=== PATIENT | female | born 1950 | race Caucasian/White ===

== ENCOUNTER 2022-12-26 18:07 | Emergency (ER) | payer OTHER, SELFPAY ==
[2022-12-26] VITALS (34 sets, daily range): BP systolic 72–149; BP diastolic 36–119; PULSE 72–101; RESP 12–34; TEMP 36.2–36.6; O2SAT 79–96
--- NOTE | ~2022-12-26 | CT_ITS ---
EXAMINATION: CT chest abdomen pelvis wo con DATE: 12/26/2022 21:07 INDICATION: Recent sepsis, now altered mental status. TECHNIQUE: Computed tomography (CT) of the chest, abdomen, and pelvis was performed without intraveno us contrast. Automated exposure control and iterative reconstruction technique were employed. The dos e-length product was 1294.54 mGy-cm. COMPARISON: None FINDINGS: CHEST CT: Mild emphysema. There is consolidation in the posterior medial left lower lobe with some correspondin g volume loss and favor atelectasis although difficult to exclude superimposed pneumonia. More linear bands of discoid atelectasis/scarring scattered throughout both lungs. There is a suture line in the right middle lobe suggesting prior partial pulmonary wedge resection. No pleural effusion. Small antonette unt of mucus in the trachea and left mainstem bronchus. Heart size is normal. Decreased attenuation t he blood pool relative to the myocardium consistent with anemia. No pericardial effusion. Atheroscler otic coronary artery calcifications and aortic valve calcific lesion. Thoracic aorta is normal in jason iber. Enlargement of the central pulmonary arteries consistent with pulmonary arterial hypertension. Several mildly prominent but still normal-sized mediastinal lymph nodes which are likely reactive. Ch ronic T7 and T12 compression fractures with change of prior vertebral plasties. There is increased sc lerosis associated with likely recent compression fracture T2 and burst fractures at T9 and T11. Ther e is a few millimeter retropulsion at both T9 and T11 resulting in mild central canal stenosis. Old h ealed fracture at the inferior sternum. ABDOMEN/PELVIS CT: There is marked dilation of the gallbladder which measures up to 6.0 cm maximal diameter. There is ho wever no evident gallbladder wall thickening or pericholecystic inflammatory stranding to more specif ically suggest acute cholecystitis. Liver, spleen, pancreas and bilateral adrenal glands are normal. Bilateral nephrolithiasis with approximately 5 stones in both kidneys measuring up to 3 mm in the rig ht kidney and 4 mm in the left kidney. There is mild right hydronephrosis with a right internal urete ral stent with loops formed in an upper pole calyx of the right kidney and in the bladder. There is a 2 mm stone in 3 mm stone alongside the stent in the proximal most right ureter. Portion of the bladd er and central deep pelvis are obscured by dense metallic streak artifact related to partially visual ized bilateral total hip arthroplasties. There is also a Roth catheter in the bladder. Moderate to l arge amount of colonic stool. No dilated bowel to suggest obstruction. The appendix is not visualized . No pericecal inflammatory change to suggest acute appendicitis. No free intraperitoneal gas or flui d. No pathologically enlarged abdominal or pelvic lymphadenopathy. 4 nonrib-bearing lumbar vertebra w ith additional more chronic appearing compression fractures at L1 and L2 and more recent-appearing co mpression fracture along the left superior endplate of L3. IMPRESSION: 1. Mild emphysema with scattered bilateral discoid atelectasis/scarring. 2. Consolidation in the posterior medial left lower lobe with associated volume loss and favor atelec tasis although difficult to exclude superimposed pneumonia. 3. Prominent dilation of the gallbladder which measures up to 6 cm but without evident wall thickenin g or pericholecystic inflammatory stranding to more specifically suggest acute cholecystitis. Correla te for Qiu sign and if clinically indicated this could be further evaluated with other ultrasound or HIDA scan. 4. Bilateral nephrolithiasis with mild right hydronephrosis and a couple 2-3 mm proximal right ureter al stones along side a right internal ureteral stent which is in expected position. 5. Multiple chronic and more recent-appearing compression and burst fract
--- NOTE | ~2022-12-26 | CT_ITS ---
EXAMINATION: CT brain wo con DATE: 12/26/2022 21:05 INDICATION: Confusion TECHNIQUE: Computed tomography (CT) of the head was performed without intravenous contrast. Sagittal and coronal reconstructions were performed. The mA was adjusted according to patient size. Iterative reconstruction technique was employed. The dose-length product was 605.33 mGy-cm. COMPARISON: None FINDINGS: Small region of encephalomalacia at the right parietal lobe along the posterior sylvian fissure consi stent with chronic infarct. Small lacunar infarct versus more likely, prevascular space at the inferi or left basal ganglia. No acute intracranial hemorrhage, acute infarction or abnormal extra axial flu id collection. There is mild scattered white matter hypoattenuation consistent with chronic small ves errol ischemic disease. Ventricles are normal and symmetric. No mass/mass effect. Changes of right int raocular lens replacement. Mild mucosal thickening the bilateral ethmoid sinuses. Small right mastoid effusion. IMPRESSION: 1. Small region of encephalomalacia consistent with chronic infarct in the left parietal lobe along t he sylvian fissure. No evident acute intracranial process. 2. Mild scattered white matter hypoattenuation consistent with chronic small vessel ischemic disease. Reviewed, dictated and finalized at location A. GLUER IMPRESSION: 1. Small region of encephalomalacia consistent with chronic infarct in the left parietal lobe along the sylvian fissure. No evident acute intracranial process . 2. Mild scattered white matter hypoattenuation consistent with chronic small ve ssel ischemic disease.
--- NOTE | 2022-12-26 18:33 | ECG_ITS ---
Measurements Intervals [place] Rate: 93 P: 30 [place]: 153 QRS: 23 QRSD: 97 T: -75 QT: 391 QTc: 486 Interpretive Statements SINUS RHYTHM NONSPECIFIC ST ABNORMALITY BASELINE ARTIFACT BORDERLINE ECG NO PREVIOUS ECG AVAILABLE FOR COMPARISON Electronically Signed On 12-28-2022 14:31:09 MANAGER ANIMATION by Manolo Chavez M.D.
--- NOTE | 2022-12-26 18:36 | ED.GENADULT ---
HPI - General Adult General Chief complaint: Shortness of Breath/Dyspnea Stated complaint: weakness Time Seen by Provider: 12/26/22 18:17 History of Present Illness HPI narrative: The patient is a 72-year-old woman with comorbidities of chronic anticoagulation, (due to atrial fibrillation history), on rivaroxaban 20 mg daily. Also with COPD, supposed to be on 2 L at all times but she does not like wearing her oxygen so she was not wearing it this evening. Recently was admitted from December 13, 2022 until December 22, 2022, discharged 4 days ago from [facility] in [facility] due to sepsis and kidney and ureteral stones. She underwent a ureteral stent placement bilaterally as well as a Roth catheter. She was discharged home after consultation with ID, on Bactrim until 12/28/2022 followed by Keflex 500 mg daily starting on 12/29/2022 for prophylaxis and suppression of a UTI. She is to follow-up with urology. She presented today with acute respiratory distress, oxygen saturations 54% on room air. On re-evaluation, 78% on room air, oxygen applied. DuoNeb given. Transported here. Saturations here are 91% on 3 L. One DuoNeb given during transport. She is confused. Answers in one-word sentences. Audible wheezing noted. Abdomen distended. Does complain of mild abdominal discomfort. Also with shortness of breath. No additional history is available or obtainable given the patient's confusion, lack of family members, or attendants with the patient. Related Data Home Medications Medication Instructions Recorded Confirmed albuterol sulfate 2.5 mg/3 mL 2.5 mg continuous nebulization PRN 12/26/22 12/26/22 (0.083 %) solution for nebulization PRN Shortness Of Breath Or Wheezing albuterol sulfate 90 mcg/actuation 2 puff inhalation Q4-6H PRN 12/26/22 12/26/22 aerosol inhaler Shortness Of Breath Or Wheezing alprazolam 0.25 mg tablet 0.25 mg PO PRN PRN Anxiety 12/26/22 12/26/22 benzonatate 100 mg capsule 100 mg PO PRN PRN Cough 12/26/22 12/26/22 budesonide 0.5 mg/2 mL suspension 1 mg inhalation HS 12/26/22 12/26/22 for nebulization cephalexin 500 mg capsule 500 mg PO DAILY 12/26/22 12/26/22 cyclobenzaprine 10 mg tablet 10 mg PO DAILY 12/26/22 12/26/22 fluticasone propionate 50 2 spray intranasal DAILY 12/26/22 12/26/22 mcg/actuation nasal spray,suspension formoterol fumarate 20 mcg/2 mL 20 mcg inhalation DAILY 12/26/22 12/26/22 solution for nebulization furosemide 20 mg tablet 20 mg PO DAILY 12/26/22 12/26/22 gabapentin 300 mg capsule 300 mg PO TID 12/26/22 12/26/22 ipratropium 0.5 mg-albuterol 3 mg 3 ml inhalation Q4-6H PRN 12/26/22 12/26/22 (2.5 mg base)/3 mL nebulization Shortness Of Breath Or Wheezing soln loratadine 10 mg capsule 10 mg PO DAILY 12/26/22 12/26/22 losartan 50 mg tablet 50 mg PO DAILY 12/26/22 12/26/22 metoprolol succinate 50 mg 50 mg PO DAILY 12/26/22 12/26/22 tablet,extended release 24 hr polyethylene glycol 3350 17 gram 17 g PO DAILY 12/26/22 12/26/22 oral powder packet rivaroxaban 20 mg tablet (Xarelto) 20 mg PO DAILY 12/26/22 12/26/22 sertraline 25 mg tablet 25 mg PO DAILY 12/26/22 12/26/22 Allergies Allergy/AdvReac Type Severity Reaction Status Date / Time No Known Allergies Allergy Verified 12/26/22 18:24 Review of Systems Review of Systems: ROS unobtainable: Yes unobtainable due to medical condition and unobtainable due to mental status Exam Narrative: Answers in one-word sentences, confused, mumbles Const: General: healthy appearing, confusion and ill appearing Nutritional Appearance: well nourished and obese Limitations: altered mental status HENMT: Head: normal to inspection, no contusions and no hematomas Ears: external ears normal Face/Nose/Sinus: Normal external nose present Face and sinus: normal facial exam Mouth: Yes Normal oral and palatal mucosa present and Yes dry mucous membranes Throat: posterior oropharynx normal and uvula midline E
[2022-12-26] MEDS: IPRATROPIUM 0.5 MG/ALBUTEROL SULFATE 2.5 MG AMPUL.NEB 3 ML INHALATION (18:50)
[2022-12-26 19:02] LABS: Appearance Urine Clear (Clear); Bilirubin Urine Negative (Negative); Blood Urine 3+ (Negative); Glucose Urine UA Negative (Negative); Ketones Urine Negative (Negative); Leukocyte Esterase Ur 3+ LEU/UL (Negative); Nitrate Urine Negative (Negative); Protein Urine 1+ (Negative); Urobilinogen Urine 0.2 mg/dL (0.2-1.0)
[2022-12-26] MEDS: MAGNESIUM SULF 2 GM/WATER 50ML 2 GM/50 ML BAG IVPB (19:17)
[2022-12-26] MEDS: methylPREDNISolone SOD SUCC 125 MG VIAL IV PUSH (19:17)
--- NOTE | 2022-12-26 19:20 | PC.NURSE ---
Report received, upon assessment of pt and entering room, pt noted sluggish and obtunded, she will awake to verbal command and alert to self only. She will answer short yes and no questions and then fall asleep again. Noted [place] cath in place that she was sent home from [facility] and it is draining dark maryam colored urine. IVF per EMS completed and pt given IVP Solumedrol and Magnesium started as per ERP order. Pt has depend in place. Pts. family member in room at bedside and able to answer some questions. Poor historian and hx on pt. received, unable to answer complete questions on pt. hx. Explained to family member Neda about current POC.
[2022-12-26 19:35] LABS: Basophils Absolute Auto 0.04 K/mm3 (0.00-0.10); Basophils Percent Auto 0.4 % (0.0-1.0); Hematocrit 32.6 % (35.0-42.0); Hemoglobin 9.3 g/dL (11.7-13.8); Lymphocytes Percent Auto 26.2 % (18.0-42.0); Mean Corpuscular HGB Conc 28.5 g/dL (32.0-36.0); Mean Corpuscular Hemoglobin 28.9 pg (27.0-31.0); Mean Corpuscular Volume 101.2 fL (78.0-102.0); Mean Platelet Volume 10.9 fl (9.2-11.8); Monocytes Absolute Auto 0.83 K/mm3 (0.10-0.90); Monocytes Percent Auto 8.4 % (2.0-11.0); Neutrophils Absolute Auto 6.2 K/mm3 (1.7-7.2); Nucleated Red Blood Cells Absolute Auto 0.04 K/mm3 (0.00-0.00); Nucleated Red Blood Cells Perc 0.4 % (0-0.0); Platelet Count Result 424 K/mm3 (150-420); Red Blood Count 3.22 M/mm3 (4.20-5.40); Red Cell Distribution Width 17.6 % (11.6-14.4); White Blood Count 9.9 K/mm3 (4.8-10.8)
[2022-12-26 19:55] LABS: Add Urine Microscopic? YES; Bacteria Urine 1+ /hpf; Budding Yeast Urine Present /hpf; Color Urine Light Green (Yellow); RBC Urine >75 /hpf (0-2); Squamous Epithelial Cell Urine Few /hpf (Few); WBC Urine >75 /hpf (0-3)
[2022-12-26 19:59] LABS: Lactic Acid Reflex 0.7 mmol/L (0.4-2.0)
[2022-12-26 20:04] LABS: Strep Group A RT-PCR NOT DETECTED (Negative)
[2022-12-26 20:07] LABS: Amphetamine Screen Urine Negative (Negative); Barbiturate Screen Urine Negative (Negative); Benzodiazepines Screen Urine Negative (Negative); Cannabinoid Screen Urine Negative (Negative); Cocaine Screen Urine Negative (Negative); Methadone Screen Urine Negative (Negative); Opiate Screen Urine Positive (Negative); Phencyclidine Screen Urine Negative (Negative)
[2022-12-26 20:07] LABS: Alanine Aminotransferase 10 U/L (14-59); Albumin Level 2.4 g/dL (3.4-5.0); Alkaline Phosphatase 114 U/L (46-116); Amylase 21 U/L (25-115); Anion Gap 7 mmol/L (8-16); Aspartate Amino Transferase 15 U/L (15-37); Bilirubin,Total 0.1 mg/dL (0.00-1.00); Blood Urea Nitrogen 29 mg/dL (7-18); CRP 8.5 mg/dL (0.0-0.9); Calcium 7.9 mg/dL (8.5-10.1); Carbon Dioxide 28 mmol/L (21-32); Chloride 98 mmol/L (98-108); Estimated CRCL calculation 28 ml/min; Estimated Glomerular Filt Rate 25; Glucose 68 mg/dL (70-99); Lipase 11 U/L (16-77); Magnesium 2.3 mg/dL (1.8-2.4); NT Pro B Type Natriuretic Pept 7649 pg/mL (0-125); Osmolality Calculated 279 mOsm/kg (285-295); Potassium 3.9 mmol/L (3.5-5.1); Sodium 133 mmol/L (136-145); Total Protein 6.4 g/dL (6.4-8.2)
[2022-12-26 20:08] LABS: Ethanol < 3 mg/dL (0-6); Troponin I 74.6 ng/L (0.00-60.4)
[2022-12-26 20:13] LABS: Influenza A QL RT-PCR Negative (Negative); Influenza B QL RT-PCR Negative (Negative); SARS-CoV-2 RNA PCR Negative (Negative)
--- NOTE | 2022-12-26 20:21 | PC.NURSE ---
Spoke c pts. friend at bedside who is pts. KATHLEENA as she has no family and pt. lives c her. She states pt. is DNR and she has paperwork stating this.
[2022-12-26 20:34] LABS: RSV RNA, RT-PCR Negative (Negative)
[2022-12-26] MEDS: SODIUM CHLORIDE 0.9% IV 1,000 ML 999 ML IV CONT (21:07)
--- NOTE | 2022-12-26 23:20 | PC.NURSE ---
ERP Dr Larry in to speak c pt and POA about transfer back to [facility]. Pt and POA agreeable to POC for transfer. Pt is more awake and alert at this time, c/o feeling very weak, she is able to turn self to her side and assist c commands. VSS at this time.
[2022-12-26] MEDS: SODIUM CHLORIDE 0.9% IV 1,000 ML 125 ML IV CONT (23:37)
[2022-12-27 00:02] LABS: Troponin I 76.4 ng/L (0.00-60.4)
[2022-12-27] MEDS: FLUCONAZOLE 200 MG/NACL 100 ML 200 MG/100 ML BAG 100 MG IVPB (00:12)
--- NOTE | 2022-12-27 00:19 | PC.NURSE ---
Awaiting call back from [facility] for bed assignment and report. Pt resting c eyes closed, no c/o at this time. VSS.
[2022-12-27 00:30] VITALS: PULSE 86; RESP 18; O2SAT 100
[2022-12-27 00:31] VITALS: BP 109/85; PULSE 87; RESP 21; O2SAT 98
[2022-12-27 00:45] VITALS: PULSE 86; RESP 15; O2SAT 93
[2022-12-27 00:46] VITALS: BP 93/69; PULSE 86; RESP 20; O2SAT 97
[2022-12-27 01:13] VITALS: BP 110/63; PULSE 83; RESP 20; TEMP 36.2; O2SAT 95
--- NOTE | 2022-12-27 01:18 | PC.NURSE ---
Call back from [facility]. Report given and bed assigned, call paged to [facility] for pt transfer. Pt resting, awakens when entering room, cooperative c care. POC discussed and awaiting EMS for transfer.
--- NOTE | 2022-12-27 01:45 | PC.NURSE ---
Report to JOSE G, pt .loaded to cot for transfer s difficulty.
--- NOTE | 2022-12-31 10:50 | PC.NURSE ---
abnormal urine culture. pt transferred to [facility], called and spoke with ada. culture results faxed to ada at [phone], will get it to floor .
== END 2022-12-27 01:49 | disposition short-term general hospital (02) ==
PROVIDERS: Emergency Provider Emergency Medicine
DX: J44.1 Chronic obstructive pulmonary disease with (acute) exacerbation (principal); R41.82 Altered mental status, unspecified; T83.511A Infection and inflammatory reaction due to indwelling urethral catheter, initial encounter; N17.9 Acute kidney failure, unspecified; R77.8 Other specified abnormalities of plasma proteins; I48.91 Unspecified atrial fibrillation; Z79.01 Long term (current) use of anticoagulants; Z99.81 Dependence on supplemental oxygen; Z20.822 Contact with and (suspected) exposure to COVID-19; Z79.899 Other long term (current) drug therapy
CPT/HCPCS: 36415; 36600; 70450; 71250; 74176; 80053; 80307; 81001; 82150; 83605; 83690; 83735; 83880; 84484; 85025; 85380; 86140; 87077; 87086; 87088; 87186; 87637; 87651; 93005; 94640; 96361; 96365; 96367; 96375; 99285; J0696; J1450; J2930; J3475; J7030

== ENCOUNTER 2023-04-08 08:27 | Emergency (ER) | payer OTHER, SELFPAY ==
[2023-04-08] VITALS (17 sets, daily range): BP systolic 144–178; BP diastolic 60–100; PULSE 101–132; RESP 20–22; TEMP 36.6–37.5; O2SAT 90–98
--- NOTE | ~2023-04-08 | CT_ITS ---
EXAMINATION: CT brain wo con INDICATION: Altered mental status COMPARISON: 12/26/2022 TECHNIQUE: Standard unenhanced head CT. The dose-length product (DLP) was 1362.00 mGy-cm. The mA was adjusted according to patient size. Iterative reconstruction technique was employed. FINDINGS: There is no acute intraparenchymal hemorrhage. No evidence of mass lesion. No evidence of a cute infarction. Again noted is a small old infarct of the left parietal lobe along the sylvian fissu re. An old lacunar infarct is noted in left basal ganglia. There is mild periventricular and subcorti jason hypodensity probably related to small vessel ischemic disease. There is mild prominence of the fernandez lci and ventricles related to cerebral atrophy. Intracranial calcified cerebral atherosclerosis is no pedro. There are no extra-axial collections. There is no mass effect or midline shift. Changes in the g lobes are likely from ocular lens surgery. There is a small fluid level versus mucosal thickening in the medial aspect of the right maxillary sinus. IMPRESSION: 1. No acute intracranial abnormality. 2. Age related findings. Reviewed, dictated and finalized at location A.
--- NOTE | ~2023-04-08 | XR_ITS ---
EXAMINATION: XR chest 1V portable INDICATION: Shortness of breath TECHNIQUE: Portable AP chest at 0908 hours COMPARISON: None available FINDINGS: There are minimal airspace opacities of the right mid and lower lung zones. No pleural effu fina or pneumothorax. Cardiomegaly is noted. There is vertebroplasty change. IMPRESSION: 1. Minimal airspace opacities of the right mid and lower lung zones, consistent with atelectasis vers us pneumonia. Reviewed, dictated and finalized at location A. IMPRESSION: 1. Minimal airspace opacities of the right mid and lower lung zones, consistent with atelectasis versus pneumonia.
--- NOTE | 2023-04-08 08:43 | ECG_ITS ---
Measurements Intervals [place] Rate: 114 P: 18 [place]: 145 QRS: 23 QRSD: 89 T: 90 QT: 334 QTc: 460 Interpretive Statements SINUS TACHYCARDIA VENTRICULAR COUPLETS ST ABNORMALITY IN ANTEROLATERAL LEADS- CONSIDER ISCHEMIA BASELINE ARTIFACT- I, II, III, AVR, AVL, AVF, V2 ABNORMAL ECG COMPARED TO ECG 12/26/2022 18:45:28 SINUS TACHYCARDIA NOW PRESENT VENTRICULAR COUPLETS NOW PRESENT ST ABNORMALITY NOW PRESENT Electronically Signed On 04-08-2023 11:48:14 CDT by Prashanth Petit D.O.
--- NOTE | 2023-04-08 08:49 | ED.SOB ---
HPI - SOB/Dyspnea General Chief Complaint: Shortness of Breath/Dyspnea Stated Complaint: short of breath Time Seen by Provider: 04/08/23 08:40 Source: patient Mode of arrival: EMS Limitations: no limitations History of Present Illness HPI Narrative: 72-year-old female with a history of smoking, hypertension, COPD on home oxygen, atrial fibrillation on Eliquis, anxiety presents to the ER with 5 day history of -- cough with mucopurulent sputum -- worsening shortness of breath -- confusion MD elicited complaint: shortness of breath and cough Pertinent past history: COPD Onset (ago): day(s) ( started 5 days ago) Context: anxiety Timing: constant Severity: severe Exacerbating factors: lying flat and exertion Relieving factors: nothing Known history of: COPD Related Data Home Medications Medication Instructions Recorded Confirmed albuterol sulfate 2.5 mg/3 mL 2.5 mg continuous nebulization PRN 12/26/22 04/08/23 (0.083 %) solution for nebulization PRN Shortness Of Breath Or Wheezing albuterol sulfate 90 mcg/actuation 2 puff inhalation Q4-6H PRN 12/26/22 04/08/23 aerosol inhaler Shortness Of Breath Or Wheezing alprazolam 0.25 mg tablet 0.25 mg PO PRN PRN Anxiety 12/26/22 04/08/23 benzonatate 100 mg capsule 100 mg PO PRN PRN Cough 12/26/22 04/08/23 budesonide 0.5 mg/2 mL suspension 1 mg inhalation HS 12/26/22 04/08/23 for nebulization fluticasone propionate 50 2 spray intranasal DAILY 12/26/22 04/08/23 mcg/actuation nasal spray,suspension formoterol fumarate 20 mcg/2 mL 20 mcg inhalation DAILY 12/26/22 04/08/23 solution for nebulization furosemide 20 mg tablet 20 mg PO DAILY 12/26/22 04/08/23 gabapentin 300 mg capsule 300 mg PO TID 12/26/22 04/08/23 ipratropium 0.5 mg-albuterol 3 mg 3 ml inhalation Q4-6H PRN 12/26/22 04/08/23 (2.5 mg base)/3 mL nebulization Shortness Of Breath Or Wheezing soln loratadine 10 mg capsule 10 mg PO DAILY 12/26/22 04/08/23 metoprolol succinate 50 mg 50 mg PO DAILY 12/26/22 04/08/23 tablet,extended release 24 hr rivaroxaban 20 mg tablet (Xarelto) 20 mg PO DAILY 12/26/22 04/08/23 sertraline 25 mg tablet 25 mg PO DAILY 12/26/22 04/08/23 Allergies Allergy/AdvReac Type Severity Reaction Status Date / Time No Known Allergies Allergy Verified 12/26/22 18:24 Review of Systems Constitutional: Constitutional: Reports as per HPI and Reports no additional constitutional complaints Eyes: Eyes: Reports as per HPI and Reports no additional eye complaints ENT: Reports system reviewed and no additional complaints, except as documented and Reports as per HPI Cardiovascular: Cardiovascular: Reports as per HPI and Reports no additional cardiovascular complaints Respiratory: Respiratory: Reports as per HPI, Reports no additional respiratory complaints, Reports cough, Reports dyspnea and Reports wheezing Gastrointestinal: Gastrointestinal: Reports as per HPI and Reports no additional gastrointestinal complaints Genitourinary: Genitourinary: Reports no additional female genitourinary complaints and Reports as per HPI Musculoskeletal: Musculoskeletal: Reports no additional musculoskeletal complaints and Reports as per HPI Integumentary/Breasts: Skin/Breast: Reports system reviewed and no additional complaints, except as docu and Reports as per HPI Neurologic: Reports system reviewed and no additional complaints, except as documented and Reports as per HPI Psychiatric: Psychiatric: Reports no additional psychiatric complaints, Reports as per HPI and Reports anxiety Endocrine: Endocrine: Reports no additional endocrine complaints and Reports as per HPI Hematologic/Lymphatic: Hematologic/Lymphatic: Reports no additional hematologic/lymphatic complaints and Reports as per HPI Allergic/Immunologic: Allergic/Immunologic: Reports no additional allergic/immunologic complaints and Reports as per HPI [facility] Past Medical History Medical History (Updated 04/08/23 @ 12:55 by Jordon Layton MD) A
[2023-04-08 09:03] LABS: Basophils Absolute Auto 0.05 K/mm3 (0.00-0.10); Basophils Percent Auto 0.3 % (0.0-1.0); Eosinophils Absolute Auto 0.01 K/mm3 (0.02-0.50); Eosinophils Percent Auto 0.1 % (1.0-6.0); Hematocrit 44.7 % (35.0-42.0); Hemoglobin 13.4 g/dL (11.7-13.8); Immature Granulocyte Absolute 0.07 K/mm3 (0.00-0.00); Immature Granulocyte Percent A 0.5 % (0.0-0.0); Lymphocytes Absolute Auto 2.52 K/mm3 (1.10-4.50); Lymphocytes Percent Auto 16.5 % (18.0-42.0); Mean Corpuscular Hemoglobin 27.2 pg (27.0-31.0); Mean Corpuscular Volume 90.9 fL (78.0-102.0); Mean Platelet Volume 11.4 fl (9.2-11.8); Monocytes Absolute Auto 1.09 K/mm3 (0.10-0.90); Monocytes Percent Auto 7.1 % (2.0-11.0); Neutrophils Absolute Auto 11.6 K/mm3 (1.7-7.2); Neutrophils Percent Auto 75.5 % (50.0-70.0); Platelet Count Result 387 K/mm3 (150-420); Red Blood Count 4.92 M/mm3 (4.20-5.40); Red Cell Distribution Width 16.7 % (11.6-14.4); White Blood Count 15.3 K/mm3 (4.8-10.8)
[2023-04-08 09:05] LABS: Base Excess ABG 0.8 mmol/L (0-2); HCO3 ABG 27.4 mmol/L (23-29); Oxygen Content ABG 18.7 %vol (16.0-22.0); Oxygen Saturation ABG 94.1 % (95-97); Oxyhemoglobin 92.3 % (94-100); PCO2 ABG 51.8 mmHg (35-45); PO2 ABG 73.2 mmHg (75-85); Total Hemoglobin 14.4 g/dL (12.0-18.0); pH ABG 7.34 (7.35-7.45)
[2023-04-08 09:07] LABS: Device NASAL CANNULA; Modified Allen's Test Pass; Site Drawn RIGHT BRACHIAL
[2023-04-08 09:19] LABS: Lactic Acid Reflex 1.7 mmol/L (0.4-2.0)
[2023-04-08] MEDS: IPRATROPIUM 0.5 MG/ALBUTEROL SULFATE 2.5 MG AMPUL.NEB 3 ML INHALATION (09:25)
[2023-04-08 09:26] LABS: Albumin Level 3.3 g/dL (3.4-5.0); Alkaline Phosphatase 109 U/L (46-116); Anion Gap 13 mmol/L (8-16); Aspartate Amino Transferase 11 U/L (15-37); Bilirubin,Total 0.6 mg/dL (0.00-1.00); Blood Urea Nitrogen 11 mg/dL (7-18); Carbon Dioxide 29 mmol/L (21-32); Chloride 98 mmol/L (98-108); Estimated CRCL calculation 53 ml/min; Estimated Glomerular Filt Rate > 60; Glucose 145 mg/dL (70-99); Lipase 17 U/L (16-77); NT Pro B Type Natriuretic Pept 10965 pg/mL (0-125); Osmolality Calculated 292 mOsm/kg (285-295); Potassium 3.3 mmol/L (3.5-5.1); Sodium 140 mmol/L (136-145); Total Protein 8.3 g/dL (6.4-8.2); Troponin I 58.8 ng/L (0.00-60.4)
[2023-04-08] MEDS: SODIUM CHLORIDE 0.9% 3 ML NEB FOR INHALATION (09:28)
[2023-04-08 09:36] LABS: Influenza A QL RT-PCR Negative (Negative); Influenza B QL RT-PCR Negative (Negative); SARS-CoV-2 RNA PCR Negative (Negative)
[2023-04-08 09:38] LABS: Alanine Aminotransferase 11 U/L (14-59)
[2023-04-08 09:47] LABS: RSV RNA, RT-PCR Negative (Negative)
[2023-04-08] MEDS: METOPROLOL TARTRATE INJ 5 MG/5 ML VIAL IV PUSH (10:10)
--- NOTE | 2023-04-08 11:15 | PC.NURSE ---
patient request [facility]
[2023-04-08] MEDS: CEFEPIME 2 GM/NS 50 ML 2 GM/50 ML BAG IVPB (11:27)
[2023-04-08] MEDS: POTASSIUM BICARBONATE 25 MEQ TABEF 50 MEQ PO (11:27)
[2023-04-08] MEDS: HALOPERIDOL LACTATE 5 MG/ML VIAL 2.5 MG IV PUSH (11:27)
[2023-04-08 11:44] LABS: Magnesium 1.6 mg/dL (1.8-2.4)
[2023-04-08] MEDS: VANCOMYCIN 1,000 MG/NS 250 ML 1,000 MG/250 ML BAG 250 MG IVPB (12:00)
[2023-04-08 12:01] LABS: Lactic Acid Reflex 1.4 mmol/L (0.4-2.0)
--- NOTE | 2023-04-15 13:17 | PC.NURSE ---
Final blood culture results: no growth after 5 days, no further treatment needed.
== END 2023-04-08 14:06 | disposition short-term general hospital (02) ==
PROVIDERS: Emergency Provider Internal Medicine Critical Care Medicine; PCP Family Medicine
DX: J44.0 Chronic obstructive pulmonary disease with (acute) lower respiratory infection (principal); J18.9 Pneumonia, unspecified organism; J44.1 Chronic obstructive pulmonary disease with (acute) exacerbation; J96.22 Acute and chronic respiratory failure with hypercapnia; J96.21 Acute and chronic respiratory failure with hypoxia; E87.6 Hypokalemia; I47.20 Ventricular tachycardia, unspecified; I11.0 Hypertensive heart disease with heart failure; I50.9 Heart failure, unspecified; I48.91 Unspecified atrial fibrillation; Z79.51 Long term (current) use of inhaled steroids; Z79.01 Long term (current) use of anticoagulants; Z20.822 Contact with and (suspected) exposure to COVID-19
CPT/HCPCS: 36415; 36600; 70450; 71045; 80053; 82805; 83605; 83690; 83735; 83880; 84443; 84484; 85025; 87040; 87637; 93005; 96361; 96365; 96367; 96375; 99285; A9270; J0692; J1630; J3370

== ENCOUNTER 2023-05-08 18:00 | Emergency (ER) | payer OTHER, SELFPAY ==
[2023-05-08 18:02] VITALS: BP 100/49; PULSE 89; RESP 22; TEMP 36.4; O2SAT 94
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
--- NOTE | 2023-05-08 18:18 | PC.NURSE ---
assist dr with female exam
--- NOTE | 2023-05-08 18:40 | PC.NURSE ---
NO BLOOD NOTED ON RECTAL EXAM NO BLOOD NOTED ON PELVIC EXAM. TECH AT BEDSIDE DURING EXAMS. NAD NOTED. PT TOLERATED WELL.
[2023-05-08 18:41] LABS: Basophils Absolute Auto 0.06 K/mm3 (0.00-0.10); Basophils Percent Auto 0.5 % (0.0-1.0); Eosinophils Absolute Auto 0.43 K/mm3 (0.02-0.50); Eosinophils Percent Auto 3.5 % (1.0-6.0); Hematocrit 38.9 % (35.0-42.0); Hemoglobin 11.1 g/dL (11.7-13.8); Immature Granulocyte Absolute 0.05 K/mm3 (0.00-0.00); Immature Granulocyte Percent A 0.4 % (0.0-0.0); Lymphocytes Absolute Auto 3.73 K/mm3 (1.10-4.50); Lymphocytes Percent Auto 29.9 % (18.0-42.0); Mean Corpuscular HGB Conc 28.5 g/dL (32.0-36.0); Mean Corpuscular Hemoglobin 27.9 pg (27.0-31.0); Mean Corpuscular Volume 97.7 fL (78.0-102.0); Mean Platelet Volume 10.3 fl (9.2-11.8); Monocytes Absolute Auto 0.78 K/mm3 (0.10-0.90); Monocytes Percent Auto 6.3 % (2.0-11.0); Neutrophils Absolute Auto 7.4 K/mm3 (1.7-7.2); Neutrophils Percent Auto 59.4 % (50.0-70.0); Platelet Count Result 468 K/mm3 (150-420); Red Blood Count 3.98 M/mm3 (4.20-5.40); Red Cell Distribution Width 19.5 % (11.6-14.4); White Blood Count 12.5 K/mm3 (4.8-10.8)
[2023-05-08 18:57] LABS: Alanine Aminotransferase 14 U/L (14-59); Albumin Level 2.9 g/dL (3.4-5.0); Alkaline Phosphatase 136 U/L (46-116); Anion Gap 9 mmol/L (8-16); Aspartate Amino Transferase 20 U/L (15-37); Bilirubin,Total 0.4 mg/dL (0.00-1.00); Blood Urea Nitrogen 11 mg/dL (7-18); Calcium 9.3 mg/dL (8.5-10.1); Carbon Dioxide 27 mmol/L (21-32); Chloride 106 mmol/L (98-108); Estimated CRCL calculation 29 ml/min; Estimated Glomerular Filt Rate 40; Glucose 94 mg/dL (70-99); INR 1.6; Osmolality Calculated 293 mOsm/kg (285-295); Potassium 4.3 mmol/L (3.5-5.1); Prothrombin Time 16.9 Seconds (9.50-12.10); Sodium 142 mmol/L (136-145); Total Protein 7.1 g/dL (6.4-8.2)
[2023-05-08 19:10] LABS: Occult Blood Negative (Negative)
--- NOTE | 2023-05-08 19:20 | PC.NURSE ---
per Md Layton, no need to obtain a urine specimen at this time.
[2023-05-08 20:08] VITALS: BP 119/76; PULSE 95; RESP 20; TEMP 36.6; O2SAT 95
== END 2023-05-08 20:11 | disposition home or self-care (01) ==
PROVIDERS: Emergency Provider Internal Medicine Critical Care Medicine; PCP Family Medicine
DX: N39.0 Urinary tract infection, site not specified (principal); N28.9 Disorder of kidney and ureter, unspecified; J43.9 Emphysema, unspecified; I48.91 Unspecified atrial fibrillation; I10 Essential (primary) hypertension; F17.200 Nicotine dependence, unspecified, uncomplicated; Z99.81 Dependence on supplemental oxygen; Z79.01 Long term (current) use of anticoagulants
CPT/HCPCS: 36415; 80053; 82272; 85025; 85610; 85730; 99283